=== PATIENT | male | born 1980 | race African-American/Black ===

== ENCOUNTER 2019-10-05 07:16 | Inpatient (IN) | payer OTHER ==
[2019-10-05] VITALS (20 sets, daily range): BP systolic 103–130; BP diastolic 49–81; BMI 17.5
[~2019-10-05] VITALS: Ht 185.4 cm; Wt 60.3 kg
[2019-10-05] MEDS ORDERED: NOVOLOG100 UNIT/1 SQ (07:24)
[2019-10-05] MEDS ORDERED: HUMULIN R100 UNIT/1 SC (07:24)
[2019-10-05 07:37] LABS: APPEARANCE CLEAR (CLEAR); BILIRUBIN NEGATIVE (NEGATIVE); COLOR STRAW (YELLOW); GLUCOSE 250 mg/dL (NEGATIVE); KETONE MODERATE mg/dL (NEGATIVE); NITRITE NEGATIVE (NEGATIVE); PROTEIN NEGATIVE (NEGATIVE); UROBILINOGEN NORMAL (NORMAL)
[2019-10-05 08:18] LABS: ALBUMIN 4.3 g/dL (3.4-5.0); ALKALINE PHOSPHATASE 112 U/L (46-116); ALT (SGPT) 23 U/L (10-68); BILIRUBIN - TOTAL 0.84 mg/dL (0.2-1.3); CALCIUM 9.5 mg/dL (8.5-10.1); CHLORIDE - SERUM 95 mmol/L (98-107); CREATININE - SERUM 1.4 mg/dL (0.6-1.3); POTASSIUM - SERUM 5.5 mmol/L (3.5-5.1); PROTEIN - SERUM 8.4 g/dL (6.4-8.2); SODIUM 134 mmol/L (136-145); UREA NITROGEN 30 mg/dL (7-18); eGFR NON AFRICAN AMERICAN 60 mL/min (90-120)
[2019-10-05 08:21] LABS: CALC OSMOLALITY 294 mosm/kg (275-300); CARBON DIOXIDE 6.5 mmol/L (21.0-32.0); GLUCOSE 468 mg/dL (74-106)
[2019-10-05 08:22] LABS: KETONE - SERUM MODERATE mg/dL (NEGATIVE)
--- NOTE | 2019-10-05 08:58 | NUR ---
INSULIN GTT STARTED AT 5 UNITS/HR PER DR CASTAÑEDA
[2019-10-05 09:07] LABS: BASOPHILS 0.1 % (0-2); EOSINOPHILS 0.1 % (0-7); HEMATOCRIT 40.9 % (42.0-54.0); HEMOGLOBIN 13.7 g/dL (13.5-17.5); IMMATURE GRANULOCYTES 0.8 % (0-5); LYMPHOCYTES 7.5 % (15-50); MCH 30.4 pg (26.0-34.0); MCHC 33.5 g/dL (31.0-37.0); MCV 90.7 fL (80.0-100.0); MEAN PLATELET VOLUME 8.7 fL (7.4-10.4); MONOCYTES 1.2 % (2-11); NEUTROPHILS 90.3 % (40-80); PLATELET COUNT 246 10x3/uL (130-400); RBC 4.51 10x6/uL (4.20-6.10); WBC 19.6 10x3/uL (4.8-10.8)
--- NOTE | 2019-10-05 09:47 | NUR ---
FSBS 425, DR CASTAÑEDA NOTIFIED
[2019-10-05 10:14] LABS: ANION GAP 36.8 mmol/L (8-16); CALCIUM 8.9 mg/dL (8.5-10.1); CREATININE - SERUM 1.3 mg/dL (0.6-1.3); PHOSPHOROUS 5.9 mg/dL (2.5-4.9); POTASSIUM - SERUM 5.1 mmol/L (3.5-5.1); THYROID STIMULATING HORMONE 0.44 uIU/mL (0.36-3.74)
[2019-10-05 10:15] LABS: CARBON DIOXIDE 7.3 mmol/L (21.0-32.0)
--- NOTE | 2019-10-05 10:28 | NUR ---
VERBAL ORDERS RECIEVED FROM DR CASTAÑEDA INCREASE INSULIN GTT TO 6UNITS/HR AND REG INSULIN 5 UNIT BOLUS
--- NOTE | 2019-10-05 10:49 | NUR ---
FSBS 334
[2019-10-05] MEDS ORDERED: LISINOPRIL20 MG PO (11:58)
--- NOTE | 2019-10-05 15:23 | NUR ---
1135: REC'D TO CV 2 VIA STRETCHER. TO RESTROOM WITH MININAL ASSISTANCE AND THEN TO BED. 1138: CONNECTED TO BEDSIDE MONITOR AND VS OBTAINED. IV R FA WITH NS @ 150. INSULIN GTT TO R AC @ 7CC/HR. SEE FLOWSHEET FOR ASSESSMENT AND VS.
[2019-10-05 17:07] LABS: CALCIUM 7.8 mg/dL (8.5-10.1); CHLORIDE - SERUM 107 mmol/L (98-107); MAGNESIUM - SERUM 1.7 mg/dL (1.8-2.4); SODIUM 139 mmol/L (136-145); eGFR NON AFRICAN AMERICAN 88 mL/min (90-120)
[2019-10-05 17:09] LABS: CALC OSMOLALITY 280 mosm/kg (275-300); CARBON DIOXIDE 16.3 mmol/L (21.0-32.0); GLUCOSE 114 mg/dL (74-106); POTASSIUM - SERUM 3.9 mmol/L (3.5-5.1); UREA NITROGEN 19 mg/dL (7-18)
--- NOTE | 2019-10-05 19:00 | NUR ---
Patient assessment completed at this time, no change noted from nurse report. Patient awake alert oriented x4. Patient denies any complaint at this time, states that he is feeling much better. Vital signs stable at this time. We will continue to monitor for changes.
--- NOTE | 2019-10-05 21:00 | NUR ---
Patient resting with eyes closed, patient wakes to name, patient denies any complaints at this time. Vital signs stable.
[2019-10-05 22:30] LABS: CALC OSMOLALITY 271 mosm/kg (275-300); CALCIUM 7.4 mg/dL (8.5-10.1); CARBON DIOXIDE 19.1 mmol/L (21.0-32.0); CHLORIDE - SERUM 105 mmol/L (98-107); CREATININE - SERUM 0.9 mg/dL (0.6-1.3); GLUCOSE 102 mg/dL (74-106); MAGNESIUM - SERUM 1.7 mg/dL (1.8-2.4); POTASSIUM - SERUM 3.7 mmol/L (3.5-5.1); SODIUM 135 mmol/L (136-145); UREA NITROGEN 17 mg/dL (7-18); eGFR NON AFRICAN AMERICAN > 90 mL/min (90-120)
--- NOTE | 2019-10-05 23:00 | NUR ---
PT REASSESSMENT COMPELTED AT THIS TIME, NO CHANGES NOTED, VSS, NO DISTRESS NOTED
[2019-10-06] VITALS (10 sets, daily range): BP systolic 96–140; BP diastolic 62–91; Ht 185.4 cm; Wt 60.3 kg
--- NOTE | 2019-10-06 01:00 | NUR ---
PT RESTING WITH EYES CLOSED, VSS, NO DISTRESS NOTED
--- NOTE | 2019-10-06 03:00 | NUR ---
Patient reassessment complete at this time. No changes noted. Vital signs stable, will continue to monitor for changes.
[2019-10-06 04:23] LABS: BASOPHILS 0 % (0-2); EOSINOPHILS 0.5 % (0-7); IMMATURE GRANULOCYTES 0.2 % (0-5); LYMPHOCYTES 31.2 % (15-50); MCH 29.6 pg (26.0-34.0); MCHC 34.6 g/dL (31.0-37.0); MEAN PLATELET VOLUME 8.3 fL (7.4-10.4); MONOCYTES 7.5 % (2-11); NEUTROPHILS 60.6 % (40-80); RBC 3.62 10x6/uL (4.20-6.10); RDW 13.4 % (11.5-14.5)
[2019-10-06 04:39] LABS: HEMATOCRIT 30.9 % (42.0-54.0); HEMOGLOBIN 10.7 g/dL (13.5-17.5); MCV 85.4 fL (80.0-100.0); PLATELET COUNT 172 10x3/uL (130-400); WBC 13.8 10x3/uL (4.8-10.8)
[2019-10-06 04:42] LABS: CALC OSMOLALITY 270 mosm/kg (275-300); CALCIUM 7.4 mg/dL (8.5-10.1); CHLORIDE - SERUM 105 mmol/L (98-107); CREATININE - SERUM 0.9 mg/dL (0.6-1.3); GLUCOSE 96 mg/dL (74-106); SODIUM 135 mmol/L (136-145); UREA NITROGEN 14 mg/dL (7-18); eGFR NON AFRICAN AMERICAN > 90 mL/min (90-120)
--- NOTE | 2019-10-06 05:00 | NUR ---
Patient resting in the bed awakes upon entering in the room, no distress noted, patient states that he is having some hunger pains and is ready to eat, vital signs stable this time.
[2019-10-06 05:04] LABS: CARBON DIOXIDE 24.8 mmol/L (21.0-32.0); POTASSIUM - SERUM 2.9 mmol/L (3.5-5.1)
--- NOTE | 2019-10-06 07:00 | NUR ---
REPORT RECEVIED FROM THE OFF GOING RN. SEE ASSESSMENT IN THE PTS FLOW SHEET. PT A&O X4. D51/2NS INFUSING AT 150 AND INSULIN GTT IN FUSING. SEE DKA INSULIN GTT SHEET. PT DENIES PAIN/NEEDS AT THIS TIME. VSS. WILL CONT POC.
--- NOTE | 2019-10-06 08:33 | NUR ---
PT GIVEN HYGIEN PRODUCTS. PT SELF AMBULATED TO THE BATHROOM AND WASH RAGS PROVIDED ALONG WITH A FRESH GOWN. PT GAVE HIMSELF A BEDBATH AND PREFORMED SELF ORAL CARE. PTS LINENS CHANGED. PT SITTING OOB BY THE WINDOW. DENIES NEEDS/WANTS AT THIS TIME. WILL CONT POC.
--- NOTE | 2019-10-06 08:43 | NUR ---
SPOKE WITH DR RODRIGUEZ. HE STATED TO LEAVE INSULIN WHERE ITS AT BUT OK FOR A DIABETIC DIET.
--- NOTE | 2019-10-06 09:12 | NUR ---
BREAKFAST TRAY PROVIED FOR THE PT.
--- NOTE | 2019-10-06 10:17 | NUR ---
DR RODRIGUEZ AT THE PTS BEDSIDE. SEE ORDERS.
[2019-10-06 10:41] LABS: CALC OSMOLALITY 272 mosm/kg (275-300); CALCIUM 8.1 mg/dL (8.5-10.1); CARBON DIOXIDE 22.3 mmol/L (21.0-32.0); CHLORIDE - SERUM 104 mmol/L (98-107); GLUCOSE 119 mg/dL (74-106); MAGNESIUM - SERUM 1.6 mg/dL (1.8-2.4); SODIUM 136 mmol/L (136-145); UREA NITROGEN 12 mg/dL (7-18); eGFR NON AFRICAN AMERICAN 88 mL/min (90-120)
[2019-10-06 10:45] LABS: POTASSIUM - SERUM 3.5 mmol/L (3.5-5.1)
--- NOTE | 2019-10-06 12:51 | NUR ---
PT EATING LUNCH. VSS. BLOOD SUGAR STABLE. WILL CONT POC.
--- NOTE | 2019-10-06 14:20 | NUR ---
SPOKE WITH DR RODRIGUEZ. DC 5 UNITS AC AND JUST KEEP SS. OK TO TRANSFER TO THE FLOOR.
--- NOTE | 2019-10-06 15:25 | NUR ---
RECEIVED PT TO ROOM 1205 VIA WHEELCHAIR. PT A/O X4, RESP EVEN AND NONLABORED ON RA. RT AC AND RT FA SL. ORIENTED PT TO ROOM AND CALL LIGHT, PT DENIES ANY NEEDS AT THIS TIME. CALL LIGHT IN REACH, NAD NOTED, WILL CONTINUE PLAN OF CARE.
[2019-10-06 16:35] LABS: CALC OSMOLALITY 271 mosm/kg (275-300); CALCIUM 8.4 mg/dL (8.5-10.1); CARBON DIOXIDE 21.7 mmol/L (21.0-32.0); CHLORIDE - SERUM 103 mmol/L (98-107); GLUCOSE 111 mg/dL (74-106); MAGNESIUM - SERUM 1.6 mg/dL (1.8-2.4); POTASSIUM - SERUM 3.6 mmol/L (3.5-5.1); SODIUM 136 mmol/L (136-145); UREA NITROGEN 11 mg/dL (7-18); eGFR NON AFRICAN AMERICAN 88 mL/min (90-120)
--- NOTE | 2019-10-06 16:42 | NUR ---
BLOOD SUGAR OF 127, NO COVERAGE NEEDED PER S/S. PT DENIES ANY NEEDS AT THIS TIME. CALL LIGHT IN REACH, NAD NOTED, WILL CONTINUE TO MONITOR.
--- NOTE | 2019-10-06 19:14 | NUR ---
PATIENT RESTING IN BED WITH NO S/S OF DISTRESS. PATIENT DENIES NEEDS AT THIS TIME. BED IN LOWEST POSITION AND CALL LIGHT WITHIN REACH. ENCOURAGED THE PATIENT TO CALL IF HE HAS NEEDS. WILL CONTINUE TO MONITOR.
[2019-10-06 21:48] LABS: CALCIUM 8.3 mg/dL (8.5-10.1); CARBON DIOXIDE 21.2 mmol/L (21.0-32.0); CHLORIDE - SERUM 99 mmol/L (98-107); CREATININE - SERUM 0.8 mg/dL (0.6-1.3); MAGNESIUM - SERUM 1.7 mg/dL (1.8-2.4); SODIUM 134 mmol/L (136-145); UREA NITROGEN 11 mg/dL (7-18); eGFR NON AFRICAN AMERICAN > 90 mL/min (90-120)
[2019-10-06 21:53] LABS: CALC OSMOLALITY 275 mosm/kg (275-300); GLUCOSE 252 mg/dL (74-106); POTASSIUM - SERUM 4.3 mmol/L (3.5-5.1)
[2019-10-07] VITALS (7 sets, daily range): BP systolic 123–153; BP diastolic 78–100
[2019-10-07 05:07] LABS: HEMATOCRIT 33.8 % (42.0-54.0); MCH 29.9 pg (26.0-34.0); MCHC 35.5 g/dL (31.0-37.0); MCV 84.3 fL (80.0-100.0); MEAN PLATELET VOLUME 8.8 fL (7.4-10.4); RBC 4.01 10x6/uL (4.20-6.10); RDW 13.1 % (11.5-14.5)
[2019-10-07 05:23] LABS: CALCIUM 8.1 mg/dL (8.5-10.1); CARBON DIOXIDE 25.8 mmol/L (21.0-32.0); CHLORIDE - SERUM 103 mmol/L (98-107); CREATININE - SERUM 0.7 mg/dL (0.6-1.3); MAGNESIUM - SERUM 1.4 mg/dL (1.8-2.4); SODIUM 138 mmol/L (136-145); UREA NITROGEN 10 mg/dL (7-18); eGFR NON AFRICAN AMERICAN > 90 mL/min (90-120)
[2019-10-07 05:25] LABS: PLATELET COUNT 207 10x3/uL (130-400); WBC 7.5 10x3/uL (4.8-10.8)
[2019-10-07 05:46] LABS: CALC OSMOLALITY 271 mosm/kg (275-300)
[2019-10-07 05:47] LABS: GLUCOSE 51 mg/dL (74-106); POTASSIUM - SERUM 2.8 mmol/L (3.5-5.1)
--- NOTE | 2019-10-07 07:53 | NUR ---
PT C/O FEELING LIKE HIS BLOOD SUGAR IS DOWN. DID A FINGER STICK ON PT AND HE WAS 81. PT HAS BREAKFAT TRAY IN FRONT OF HIM, ENCOURAGE PT TO EAT HIS BREAKFAST AND THEN I WILL RECHECK BLOOD SUGAR IN 1HR.
--- NOTE | 2019-10-07 08:32 | NUR ---
AM MEDS GIVEN AT THIS TIME. ALSO GAVE 400MG OF MAG AND 40MEQ OF K. NEW ORDER FOR 2G OF MAG IV. PER AFSANEH SOLITARIO RECHECK MAG IN 4HRS IF STILL LOW GIVE 2G OF MAG IF NOT CANCEL ORDER. PT VERY UNHAPPY WITH THE CARE HE RECEIVED LAST NIGHT. STATING THAT HE BLOOD SUGAR GOT INTO THE 3OO'S AND THEN THEY GAVE HIM TO MUCH INSULIN WHICH CAUSED HIM TO BOTTOM OUT. ALSO THAT NO ONE WAS IN HIS ROOM DURING THE NIGHT TO CHECK ON HIM.
[2019-10-07 09:38] LABS: CALCIUM 8.3 mg/dL (8.5-10.1); CARBON DIOXIDE 28.3 mmol/L (21.0-32.0); CHLORIDE - SERUM 102 mmol/L (98-107); SODIUM 137 mmol/L (136-145); UREA NITROGEN 10 mg/dL (7-18)
[2019-10-07 09:39] LABS: CALC OSMOLALITY 279 mosm/kg (275-300); CREATININE - SERUM 0.9 mg/dL (0.6-1.3); GLUCOSE 219 mg/dL (74-106); MAGNESIUM - SERUM 1.8 mg/dL (1.8-2.4); POTASSIUM - SERUM 4.1 mmol/L (3.5-5.1); eGFR NON AFRICAN AMERICAN > 90 mL/min (90-120)
[2019-10-07 09:39] LABS: LYMPHOCYTES 44 % (15-50); MONOCYTES 9 % (2-11); NEUTROPHILS 44 % (40-80); PLATELET ESTIMATE NORMAL; ROULEAUX OCC
--- NOTE | 2019-10-07 11:32 | NUR ---
BLOOD SUGAR OF 235, 5UNITS GIVEN SCHEDULED AND 4UNITS GIVEN PER S/S. PT DENIES ANY NEEDS AT THIS TIME, CALL LIGHT IN REACH, NAD NOTED, WILL CONTINUE TO MONITOR.
--- NOTE | 2019-10-07 12:42 | NUR ---
PER AFSANEH WHITE APRN D/C 5UNITS OF HUMULIN ORDERED WITH MEALS.
--- NOTE | 2019-10-07 15:33 | NUR ---
PT UP TO SIDE OF BED, DENIES ANY NEEDS AT THIS TIME. CALL LIGHT IN REACH, NAD NOTED, WILL CONTINUE TO MONITOR.
--- NOTE | 2019-10-07 16:54 | NUR ---
BLOOD SUGAR OF 161, 2UNITS GIVEN PER S/S. PT IN BED, FIXING TO EAT DINNER, DENIES ANY NEEDS AT THIS TIME. CALL LIGHT IN REACH, NAD NOTED.
--- NOTE | 2019-10-07 19:55 | NUR ---
EVENING ROUNDS COMPLETED. VSS, AAOX4, NO S/S OF DISTRESS. PT UP IN CHAIR. FSBS 245. WILL ADMINISTER MEDS WHEN DUE. PT DENIES ANY FURTHER NEEDS AT TYHIS TIME. WILL CPOC. CL WITHIN REACH.
[2019-10-08 00:23] VITALS: BP 144/84
[2019-10-08 06:05] VITALS: BP 139/50
[2019-10-08 06:09] LABS: BASOPHILS 0 % (0-2); EOSINOPHILS 1.8 % (0-7); HEMATOCRIT 35.3 % (42.0-54.0); HEMOGLOBIN 12.4 g/dL (13.5-17.5); LYMPHOCYTES 58.3 % (15-50); MCH 29.9 pg (26.0-34.0); MCHC 35.1 g/dL (31.0-37.0); MCV 85.1 fL (80.0-100.0); MONOCYTES 8.2 % (2-11); NEUTROPHILS 31.7 % (40-80); PLATELET COUNT 186 10x3/uL (130-400); RBC 4.15 10x6/uL (4.20-6.10); RDW 13.4 % (11.5-14.5); WBC 6.1 10x3/uL (4.8-10.8)
[2019-10-08 07:23] VITALS: BP 131/76
--- NOTE | 2019-10-08 08:08 | NUR ---
AM MEDS GIVEN AT THIS TIME. PT A/O X4, RESP EVEN AND NONLABORED ON RA. RT FA AND RT WRIST IV SL. PT DENIES ANY NEEDS AT THIS TIME. [facility], NAD NOTED,W ILL CONTINUE TO MONITOR.
[2019-10-08] MEDS ORDERED: PROTONIX40 MG PO (10:09)
[2019-10-08] MEDS ORDERED: GLUCOPHAGE500 MG PO (10:10)
--- NOTE | 2019-10-08 10:47 | NUR ---
PT REFUSED FLU SHOT AND WANTS TO USE [facility] IN [facility].
--- NOTE | 2019-10-08 12:10 | NUR ---
PROVIDED VERBAL AND WRITTEN DISHCARGE TEACHING TO PT, WHO VERBALIZED UNDERSTANDING REGARING TEACHING. PT STATING THAT HE DOES NOT FEEL GOOD BECAUSE HIS BLOOD SUGAR IS HIGH. TOLD PT THAT I WOULD RECHECK HIS BLOOD SUGAR IN 30MIN TO SEE IF IT'S GOING DOWN. ALSO CASE CHRISTIANPREMA WILL TALK TO HIM.
--- NOTE | 2019-10-08 12:34 | MORECARE ---
CASE MANAGEMENT DISCHARGE SUMMARY PATIENT: CLAUDE FORTE UNIT: [id number] ADM DATE: 10/05/19 AGE: 38 : [birth year] SEX: M ROOM/BED: D.1205 AUTHOR: SHAHZAD HOLLOWAY PHYSICIAN: REFERRING PHYSICIAN: CELIO WELLS MD DATE OF SERVICE: 10/08/19 Discharge Plan Patient Name: CLAUDE FORTE Facility: [facility]:[place] : 1980 Planned Disposition: Home Anticipated Discharge Date: 10/08/19 Discharge Date: Expected LOS: 3 Initial Reviewer: [email or web address] Initial Review Date: 10/08/2019 Generated: 10/08/19 1:34 pm DCPIA - Discharge Planning Initial Assessment Updated by CLOVIS: Rosio Riggs on 10/08/19 12:33 pm * Is the patient Alert and Oriented? Yes * How many steps to enter\exit or inside your home? * PCP Nba * Pharmacy [facility] in [place] * Preadmission Environment Home with Family * ADLs Independent * Equipment Glucometer * List name and contact numbers for known caregivers / representatives who currently or will assist patient after discharge: Edna Angeles, Aunt, * Verbal permission to speak to the caregivers and representatives has been obtained from the patient. No * Community resources currently utilized None * Additional services required to return to the preadmission environment? No * Can the patient safely return to the preadmission environment? Yes * Has this patient been hospitalized within the prior 30 days at any hospital? No Coverage Notice Reviewer: [email or web address] - Rosio Riggs Notice Issued Date-Time: 10/08/2019 12:30 Notice Type: IM Discharge Notice Notice Delivered To: Patient Relationship to Patient: Self Janitor Supervisor Name: Delivery Method: HAND - Hand Delivered Lisa Days: Prior Verbal Notification: Recipient Understood Notice: Yes Recipient Signature: Yes Med Rec Note Co-signed by Attending: Coverage Notice Comment: Patient Name: CLAUDE FORTE Page [id number] at 1234 All edits/amendments must be made on the electronic document DICTATION DATE: 10/08/19 1234 STEAM GENERATING POWERPLANT MECHANIC: SUBHA 10/08/19 1234 RPT#: [id number] DC DATE: STATUS: ADM IN [facility] [address] [place] [address] END OF REPORT
--- NOTE | 2019-10-08 12:42 | MORECARE ---
CASE MANAGEMENT DISCHARGE SUMMARY PATIENT: CLAUDE FORTE UNIT: [id number] ADM DATE: 10/05/19 AGE: 38 : 76 SEX: M ROOM/BED: D.1205 AUTHOR: AMIE,DOC PHYSICIAN: REFERRING PHYSICIAN: CELIO WELLS MD DATE OF SERVICE: 10/08/19 Discharge Plan Patient Name: CLAUDE FORTE Facility: [facility]:[place] : 1980 Planned Disposition: Home Anticipated Discharge Date: 10/08/19 Discharge Date: Expected LOS: 3 Initial Reviewer: [email or web address] Initial Review Date: 10/08/2019 Generated: 10/08/19 1:42 pm Comments DCP- Discharge Planning Updated by [id number]: Rosio Riggs on 10/08/19 11:[address] Patient Name: CLAUDE FORTE Admission Status: ER Accout number: [id number] Admission Date: 10-05-2019 : 1980 Admission Diagnosis: Attending: ELMER Current LOS: 3 Anticipated DC Date: 10-08-2019 Planned Disposition: Home Primary Insurance: [employer] Discharge Planning Comments: CM met with patient to discuss discharge planning / needs. Patient states he plans to discharge to his aunt's house at [address] [place] [address] in [place]. Patient denies the need for home health or other community resource needs. States he has a glucometer and he is able to get his medications. States he was in [facility] 10/02/19-10/04/19 for "IV's and infection". States that is why he is going to stay at his aunt's house instead of going to his home alone. States the home environment is safe. States he will call his aunt to transport him home. CM explained and served DC IMM. Patient denies any questions, concerns, or needs at this time. CM will continue to follow and assist as needed with discharge planning / needs. Heat Treat Supervisor: Rosio Riggs DCPIA - Discharge Planning Initial Assessment Updated by [email or web address]: Rosio Riggs on 10/08/19 12:39 pm * Is the patient Alert and Oriented? Yes * How many steps to enter\\exit or inside your home? * PCP Nba * Pharmacy [facility] in [place] * Preadmission Environment Home with Family * ADLs Independent * Equipment Glucometer * List name and contact numbers for known caregivers / representatives who currently or will assist patient after discharge: Edna Angeles, Aunt, * Verbal permission to speak to the caregivers and representatives has been obtained from the patient. No * Community resources currently utilized None * Additional services required to return to the preadmission environment? No * Can the patient safely return to the preadmission environment? Yes * Has this patient been hospitalized within the prior 30 days at any hospital? Yes Coverage Notice Reviewer: [id number] Leelee Riggs Notice Issued Date-Time: 10/08/2019 12:30 Notice Type: IM Discharge Notice Notice Delivered To: Patient Relationship to Patient: Self Projector Booth Operator Name: Delivery Method: HAND - Hand Delivered Lisa Days: Prior Verbal Notification: Recipient Understood Notice: Yes Recipient Signature: Yes Med Rec Note Co-signed by Attending: Coverage Notice Comment: Last DP export: 10/08/19 11:34 a Patient Name: CLAUDE FORTE Page [id number] at 1242 All edits/amendments must be made on the electronic document DICTATION DATE: 10/08/19 1242 AUTO BATTERY BUILDER: SUBHA 10/08/19 1242 RPT#: [id number] DC DATE: STATUS: ADM IN [facility] [address] [place] [address] END OF REPORT
--- NOTE | 2019-10-08 12:55 | NUR ---
D/C RT WRIST AND RT AC IV BOTH WITH CATHETER TIP INTACT. PT REFUSED TO BE WHEELED OUT. LEFT UNIT VIA AMBULATORY WITH ALL BELONGINGS, ACCOMPANIED BY AERIAL INSTALLER, NAD NOTED.
--- NOTE | 2019-10-08 15:42 | MORECARE ---
CASE MANAGEMENT DISCHARGE SUMMARY PATIENT: CLAUDE FORTE UNIT: [id number] ADM DATE: 10/05/19 AGE: 38 : 76 SEX: M ROOM/BED: D.1205 AUTHOR: AMIE,DOC PHYSICIAN: REFERRING PHYSICIAN: CELIO WELLS MD DATE OF SERVICE: 10/08/19 Discharge Plan Patient Name: CLAUDE FORTE Facility: [facility]:[place] : 1980 Planned Disposition: Home Anticipated Discharge Date: 10/08/19 Discharge Date: 10/08/2019 Expected LOS: 3 Initial Reviewer: [email or web address] Initial Review Date: 10/08/2019 Generated: 10/08/19 4:41 pm Comments DCP- Discharge Planning Updated by [email or web address]: Rosio Riggs on 10/08/19 11:[address] Patient Name: CLAUDE FORTE Admission Status: ER Accout number: [id number] Admission Date: 10-05-2019 : 1980 Admission Diagnosis: Attending: ELMER Current LOS: 3 Anticipated DC Date: 10-08-2019 Planned Disposition: Home Primary Insurance: [employer]ICAID Discharge Planning Comments: CM met with patient to discuss discharge planning / needs. Patient states he plans to discharge to his aunt's house at [address] [place] [address] in [place]. Patient denies the need for home health or other community resource needs. States he has a glucometer and he is able to get his medications. States he was in [facility] 10/02/19-10/04/19 for "IV's and infection". States that is why he is going to stay at his aunt's house instead of going to his home alone. States the home environment is safe. States he will call his aunt to transport him home. CM explained and served DC IMM. Patient denies any questions, concerns, or needs at this time. CM will continue to follow and assist as needed with discharge planning / needs. Layboy Operator: Rosio Riggs DCPIA - Discharge Planning Initial Assessment Updated by [email or web address]: Rosio Riggs on 10/08/19 12:39 pm * Is the patient Alert and Oriented? Yes * How many steps to enter\\exit or inside your home? * PCP Nba * Pharmacy [facility] in [place] * Preadmission Environment Home with Family * ADLs Independent * Equipment Glucometer * List name and contact numbers for known caregivers / representatives who currently or will assist patient after discharge: Edna Angeles, Aunt, * Verbal permission to speak to the caregivers and representatives has been obtained from the patient. No * Community resources currently utilized None * Additional services required to return to the preadmission environment? No * Can the patient safely return to the preadmission environment? Yes * Has this patient been hospitalized within the prior 30 days at any hospital? Yes Coverage Notice Reviewer: [email or web address] Leelee Riggs Notice Issued Date-Time: 10/08/2019 12:30 Notice Type: IM Discharge Notice Notice Delivered To: Patient Relationship to Patient: Self Information Assurance Engineer Name: Delivery Method: HAND - Hand Delivered Lisa Days: Prior Verbal Notification: Recipient Understood Notice: Yes Recipient Signature: Yes Med Rec Note Co-signed by Attending: Coverage Notice Comment: Last DP export: 10/08/19 11:42 a Patient Name: CLAUDE FORTE Page [id number] at 1542 All edits/amendments must be made on the electronic document DICTATION DATE: 10/08/191540 STUDENT TEACHING COORDINATOR: SUBHA 10/08/191540 RPT#: [id number] DC DATE:10/08/19 STATUS: DIS IN [facility] [address] [place] [address] END OF REPORT
== END 2019-10-08 13:04 | disposition home or self-care (01) | DRG 638 ==
LOC: D.ER 07:16 → D.M3 09:41 → D.ICU 09:41 → D.CVICU 09:41 → D.M3 10-06 15:19
PROVIDERS: Emergency Medicine; ADMIT Family Medicine; ATTEND Family Medicine
DX: E10.10 Type 1 diabetes mellitus with ketoacidosis without coma (principal); N17.9 Acute kidney failure, unspecified; E10.65 Type 1 diabetes mellitus with hyperglycemia; E87.5 Hyperkalemia; I10 Essential (primary) hypertension; E87.6 Hypokalemia; D64.9 Anemia, unspecified